=== PATIENT | male | born 1960 | race Caucasian/White ===

== ENCOUNTER → 2021-02-25 | Day surgery (SDC) | payer BC ==
[~2021-02-25] MED LIST: Midazolam 1 MG/ML 2 ML SDV ONE; Propofol 200 MG/20 ML SDV ONE; Sodium Chloride 0.9% 1,000 ML IV SCH; fentaNYL 100 MCG/2 ML SDV ONE
[2021-02-25 10:46] VITALS: BP 161/98; PULSE 74
--- NOTE | 2021-02-27 11:01 | OR ---
DATE OF PROCEDURE: 02/25/2021 SURGEON: Ryley Rehman MD PROCEDURE: Colonoscopy (70000). FINDINGS: 1. Ascending colon polyp, approximately 8 mm, completely removed using hot snare wire device. 2. Transverse colon polyp #1, approximately 5 mm, completely removed using hot snare wire device. 3. Transverse colon polyp #2, 5 mm, completely removed using hot snare wire device. 4. Endoscopic mucosal resection of polyp at 50 cm, elevated and tattooed using ink. 5. Sigmoid colon polyp, approximately 8 mm, completely removed using hot snare wire device. COMPLICATIONS: None. 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 ANESTHESIA: MAC. PREOPERATIVE DIAGNOSIS: Screening colonoscopy/history of colon polyps. POSTOPERATIVE DIAGNOSIS: Screening colonoscopy/history of colon polyps. RISKS: Risks, benefits, alternatives, and limitations including, but not limited to infection, bleeding, perforation, false positives were explained to the patient and he wished to proceed. PROCEDURE IN DETAIL: The patient was placed in left lateral decubitus position. Digital rectal exam was performed without abnormality. Scope was introduced and advanced atraumatically to the ileocecal valve. A photo was taken of this. Scope was brought back to the ascending, transverse, descending colon, and retroflexed. The aforementioned polyps were identified and completely removed as described. No abnormal bleeding was noted. Of note, the polypoid lesion at 50 cm was removed using mucosal resection technique, which included submucosal injection and elevation using [employer] [employer]k as the elevator. Once this was complete, electrocautery was used to control any bleeding. No abnormalities on retroflexion. The prep was acceptable with approximately 90% of the luminal surface could be seen. Greater than 8 minutes was spent removing the scope. The patient tolerated the procedure well. Ryley Rehman MD /[id number]
== END ==
LOC: JP.SDS 07:26
PROVIDERS: ATTEND Surgery
DX: Z12.11 Encounter for screening for malignant neoplasm of colon (principal); D12.2 Benign neoplasm of ascending colon; D12.3 Benign neoplasm of transverse colon; D12.5 Benign neoplasm of sigmoid colon; Z91.030 Bee allergy status
CPT/HCPCS: 45381; 45385; 45390; J2250; J2704; J3010; J7030; 88305

== ENCOUNTER 2022-03-10 06:29 | Day surgery (SDC) | payer SELFPAY ==
[2022-03-10] MEDS ORDERED: fentaNYL 100 MCG/2 ML SDV ONE (07:22)
[2022-03-10] MEDS ORDERED: Propofol 200 MG/20 ML SDV ONE (07:22)
[2022-03-10] MEDS ORDERED: Midazolam 1 MG/ML 2 ML SDV ONE (07:22)
[2022-03-10] MEDS ORDERED: Sodium Chloride 0.9% 1,000 ML IV SCH (07:30)
[2022-03-10 09:06] VITALS: BP 154/89; PULSE 58
== END 2022-03-10 09:07 | disposition home or self-care (01) ==
LOC: JP.SDS 06:29
PROVIDERS: ATTEND Surgery
DX: Z12.11 Encounter for screening for malignant neoplasm of colon (principal); D12.4 Benign neoplasm of descending colon; Z91.030 Bee allergy status; Z86.010 Personal history of colon polyps
CPT/HCPCS: J2250; J2704; J3010; J7030

== ENCOUNTER 2022-06-26 06:30 | Day surgery (SDC) | payer SELFPAY ==
[2022-06-26] MEDS ORDERED: Sodium Chloride 0.9% 1,000 ML IV SCH (06:45)
[2022-06-26] MEDS ORDERED: Midazolam 1 MG/ML 2 ML SDV ONE (07:25)
[2022-06-26] MEDS ORDERED: Propofol 200 MG/20 ML SDV ONE (07:25)
[2022-06-26] MEDS ORDERED: fentaNYL 100 MCG/2 ML SDV ONE (07:25)
[2022-06-26 09:10] VITALS: BP 131/83; PULSE 59
== END 2022-06-26 09:18 | disposition home or self-care (01) ==
LOC: JP.SDS 06:30
PROVIDERS: ATTEND Surgery
DX: Z12.11 Encounter for screening for malignant neoplasm of colon (principal); Z86.010 Personal history of colon polyps; Z91.030 Bee allergy status; Z91.038 Other insect allergy status
CPT/HCPCS: 45378; J2250; J2704; J3010; J7030

== ENCOUNTER 2024-05-02 08:59 | Day surgery (SDC) | payer SELFPAY ==
[2024-05-02] MEDS: Nozin Nasal Sanitizer NASBOTH ONE (09:28)
[2024-05-02] MEDS: Lactated Ringers 1,000 ML IV SCH (09:28)
[2024-05-02 09:36] LABS: HEMATOCRIT 45.5 % (38.4-49.7); HEMOGLOBIN 15.7 g/dL (12.9-16.9); MEAN CORPUSCULAR HEMOGLOBIN 30.3 pg (31.6-35.5); MEAN CORPUSCULAR HGB CONC 34.5 g/dL (31.6-35.5); MEAN CORPUSCULAR VOLUME 87.7 fL (81.4-99.0); RED BLOOD CELL COUNT 5.19 M/uL (4.14-5.76)
[2024-05-02] MEDS ORDERED: Propofol 200 MG/20 ML SDV ONE (09:53)
[2024-05-02] MEDS ORDERED: fentaNYL 250 MCG/5 ML SDV ONE (09:54)
[2024-05-02] MEDS ORDERED: Midazolam 1 MG/ML 2 ML SDV ONE (09:54)
[2024-05-02 09:57] LABS: ALANINE AMINOTRANSFERASE,ALT 45 U/L (12-78); ALBUMIN 3.5 g/dL (3.4-5.0); ALKALINE PHOSPHATASE 55 U/L (46-116); ANION GAP 7.2 mmol/L (5.0-14.0); ASPARTATE AMNIOTRANSFERASE,AST 22 U/L (15-37); BILIRUBIN TOTAL 0.6 mg/dL (0.2-1.0); BLOOD UREA NITROGEN,BUN 12 mg/dL (7-18); CALCIUM 9.2 mg/dL (8.5-10.1); CARBON DIOXIDE,CO2 30 mmol/L (21-32); CHLORIDE,CL 103 mmol/L (100-108); EST CRCL DRUG DOSING (CG) 89.19 mL/min; ESTIMATED GFR 84 mL/min (>60); GLUCOSE RANDOM 117 mg/dL (74-106); POTASSIUM,K 4.1 mmol/L (3.6-5.2); PROTEIN TOTAL,TP 7.2 g/dL (6.4-8.2); SODIUM,NA 140 mmol/L (140-148)
[2024-05-02] MEDS ORDERED: Succinylcholine 200 MG/10 ML MDV ONE (12:58)
[2024-05-02] MEDS ORDERED: Glycopyrrolate 0.2 MG/ML 5 ML MDV ONE (12:58)
[2024-05-02] MEDS ORDERED: Rocuronium 50 MG/5 ML Vial ONE (12:58)
[2024-05-02] MEDS ORDERED: Neostigmine Methylsulfate 10 MG/10 ML MDV ONE (12:58)
[2024-05-02] MEDS ORDERED: Ondansetron 4 MG/2 ML SDV ONE (12:58)
[2024-05-02] MEDS ORDERED: Dexamethasone 4 MG/ML SDV ONE (12:58)
[2024-05-02] MEDS: ceFAZolin 2 GM in Premix Bag 1 BAG IV ONE (13:49)
[2024-05-02] MEDS: Bupivacaine 0.5% 50 ML MDV ONE (13:56)
[2024-05-02] MEDS: Acetaminophen/oxyCODONE 325-5 MG Tab PO ONE (16:40)
[2024-05-02 18:48] VITALS: BP 158/87; PULSE 100
== END 2024-05-02 19:43 | disposition home or self-care (01) ==
LOC: JP.SDS 08:59
PROVIDERS: ATTEND Specialist
DX: M75.121 Complete rotator cuff tear or rupture of right shoulder, not specified as traumatic (principal); M25.811 Other specified joint disorders, right shoulder; M19.011 Primary osteoarthritis, right shoulder
CPT/HCPCS: 01630; 23412; 29822; 36415; 80053; 85027; 93005; 93010; A9270; C1713; J0330; J0690; J1100; J1596; J2250; J2405; J2704; J2710; J3010; J7120; J0665; J3490

== ENCOUNTER 2024-05-06 13:58 | Emergency (ER) | payer SELFPAY ==
[2024-05-06 14:14] VITALS: PULSE 78
[2024-05-06 15:00] VITALS: BP 128/85
== END 2024-05-06 16:47 | disposition home or self-care (01) ==
LOC: JP.ED 13:58
DX: G89.18 Other acute postprocedural pain (principal); Z91.030 Bee allergy status; Z91.038 Other insect allergy status
CPT/HCPCS: 73030-26-RT; 73030-RT; 99283